=== PATIENT | female | born 1955 | race Two or more races ===

== ENCOUNTER 2023-12-23 12:03 | Emergency (ER) | payer OTHER ==
[~2023-12-23] VITALS: Ht 149.9 cm; Wt 56.7 kg
[2023-12-23] MEDS ORDERED: ORPHENADRINE CITRATE 30 MG/ML AMPUL IM ONE (12:30)
[2023-12-23] MEDS ORDERED: TRAMADOL HCL 50 MG TABLET PO ONE (12:30)
[2023-12-23] MEDS ORDERED: ORPHENADRINE CITRATE 30 MG/ML AMPUL ONE (13:15)
[2023-12-23] MEDS ORDERED: NORFLEX100MG PO (14:09)
[2023-12-23] MEDS ORDERED: KETO10TA2 PO (14:09)
== END 2023-12-23 14:28 | disposition home or self-care (01) ==
LOC: ER 12:04
DX: S09.8XXA Other specified injuries of head, initial encounter (principal); W19.XXXA Unspecified fall, initial encounter; Y93.89 Activity, other specified; Y92.232 Corridor of hospital as the place of occurrence of the external cause; Y99.8 Other external cause status; M54.2 Cervicalgia; M25.511 Pain in right shoulder; I10 Essential (primary) hypertension; Z88.0 Allergy status to penicillin; Z88.6 Allergy status to analgesic agent